=== PATIENT | male | born 1995 | race Hispanic/Latino ===

== ENCOUNTER 2022-04-13 17:28 | Emergency (ER) | payer SELFPAY ==
[~2022-04-13] VITALS: Ht 165.1 cm; Wt 81.0 kg
[2022-04-13 17:33] VITALS: BP 135/93
[2022-04-13] MEDS ORDERED: TAM75CAP PO (18:22)
[2022-04-13 18:25] VITALS: BP 135/93
== END 2022-04-13 19:45 | disposition home or self-care (01) | DRG 153 ==
LOC: ED 17:28
DX: J11.1 Influenza due to unidentified influenza virus with other respiratory manifestations (principal); J45.909 Unspecified asthma, uncomplicated; Z20.822 Contact with and (suspected) exposure to COVID-19